=== PATIENT | female | born 1995 | race Caucasian/White ===

== ENCOUNTER 2017-12-25 15:24 | Emergency (ER) | END 2017-12-25 18:43 | disposition home or self-care (01) ==

== ENCOUNTER 2018-01-31 10:14 | Outpatient (CLI) | END 2018-01-31 13:20 | disposition home or self-care (01) ==

== ENCOUNTER 2018-04-12 15:14 | Outpatient (CLI) | END 2018-04-12 17:45 | disposition home or self-care (01) ==

== ENCOUNTER 2018-04-22 21:20 | Inpatient (IN) | END 2018-04-30 13:49 | disposition home or self-care (01) | DRG 774 ==

== ENCOUNTER 2018-06-11 16:31 | Emergency (ER) | END 2018-06-11 20:51 | disposition home or self-care (01) ==